=== PATIENT | male | born 1990 | race Hispanic/Latino ===

== ENCOUNTER 2024-06-09 08:03 | Emergency (ER) | payer OTHER ==
[~2024-06-09] VITALS: Ht 174 cm; Wt 79.4 kg
[2024-06-09 09:15] VITALS: TEMP 97.9
[2024-06-09 09:33] LABS: INFLUENZA A AG NEGATIVE (NEGATIVE); INFLUENZA B AG NEGATIVE (NEGATIVE)
[2024-06-09 09:34] LABS: CORONAVIRUS COVID-19 AG NEGATIVE (NEGATIVE)
[2024-06-09 09:50] VITALS: PULSE 68; RESP 16; O2SAT 100
== END 2024-06-09 10:00 | disposition home or self-care (01) ==
LOC: ER 08:08
DX: R05.9 Cough, unspecified (principal); J06.9 Acute upper respiratory infection, unspecified; R09.89 Other specified symptoms and signs involving the circulatory and respiratory systems; R53.81 Other malaise; Z11.52 Encounter for screening for COVID-19
CPT/HCPCS: 99283